=== PATIENT | male | born 1985 | race Two or more races ===

== ENCOUNTER 2022-10-22 16:23 | Emergency (ER) | payer SELFPAY ==
[~2022-10-22] VITALS: Ht 175.3 cm; Wt 89.2 kg
[2022-10-22] MEDS ORDERED: KETOROLAC TROMETH 60MG/2ML VIAL IM ONE (20:00)
[2022-10-22] MEDS ORDERED: IBUP-1456 PO (20:01)
[2022-10-22] MEDS ORDERED: ACYC400T16 PO (20:01)
[2022-10-22 20:04] VITALS: BP 141/92
== END 2022-10-22 20:18 | disposition home or self-care (01) ==
LOC: ER 16:29
DX: B02.9 Zoster without complications (principal)
CPT/HCPCS: 96372; 99283; J1885